=== PATIENT | male | born 1945 ===

== ENCOUNTER 2021-03-15 07:46 | Emergency (ER) | payer MEDICARE ==
[~2021-03-15] VITALS: Ht 172.7 cm; Wt 80.0 kg
--- NOTE | 2021-03-15 07:57 | PHYS DOC ---
Past Medical History Past Medical History: COPD General Adult EDM: Chief Complaint: SHORTNESS OF BREATH HPI: HPI: Patient is a 75-year-old male presenting via EMS for shortness of breath. This is an acute on chronic issue. Given respiratory status, majority of history obtained from EMS. Patient has history of COPD and typically on 5 L oxygen via nasal cannula. He awoke with increased shortness of breath which concerned , she increased his nasal cannula to 6 L without improvement prompting her to call EMS. On arrival, patient was found to be in acute respiratory failure saturating 68% on 6 L oxygen via nasal cannula. Patient was immediately placed on CPAP, and x1 DuoNeb treatment administered with improvement in patient's tachypnea and respiratory status. Nonetheless he was transferred to our facility for evaluation. On arrival, patient complaining of continued shortness of breath without any known inciting event, trauma, ingestion, exposure, sick contact or travel. Reports interventions provided of improved his symptoms. Does disclose he is on Eliquis blood thinner but unsure why. Review of Systems: Review of Systems: Fourteen body systems of review of systems have been reviewed. See HPI for pertinent positives and negative responses, other guzman all other systems are negative, non-pertinent or non-contributory Heart Score: C/O Chest Pain: No HEART Score for Chest Pain: HEART Score for Chest Pain Response (Comments) Value History Slighlty/Non-Suspicious 0 ECG Normal 0 Age > 65 2 Risk Factors >3 Risk Factors or Hx CAD 2 Troponin < Normal Limit 0 Total 4 Risk Factors: Risk Factors: DM, Current or recent (<one month) smoker, HTN, HLP, family history of CAD, obesity. Risk Scores: Score 0 - 3: 2.5% MACE over next 6 weeks - Discharge Home Score 4 - 6: 20.3% MACE over next 6 weeks - Admit for Clinical Observation Score 7 - 10: 72.7% MACE over next 6 weeks - Early Invasive Strategies Physical Exam: PE: Constitutional: Age-appropriate, in acute respiratory distress, GCS 15 HENT: Normocephalic, atraumatic, bilateral external ears normal, oropharynx dry with poor dentition globally, no oral exudates, nose normal. Eyes: PERRLA, EOMI, conjunctiva normal, no discharge. Neck: Normal range of motion, no tenderness, supple, no stridor. Cardiovascular: Heart rate tachycardic, sinus rhythm, no murmurs rubs or gallops Lungs & Thorax: Acute respiratory distress, accessory muscle use of abdomen with abdominal tractions noted, minimal air movement bilaterally with increased work of breathing Abdomen: Bowel sounds normal, soft, no tenderness, no masses, no pulsatile masses. Nonsurgical abdomen, no peritoneal signs : Incontinent of bowel which is typical for patient, Lord catheter placed and well-appearing on arrival Skin: Warm, dry, no erythema, no rash. Back: No tenderness, no CVA tenderness. Extremities: No tenderness, no cyanosis, no clubbing, ROM intact, no edema. Neurologic: Alert and oriented X 3, grossly normal motor & sensory function, no focal deficits noted. Psychologic: Anxious affect and mood Current Patient Data: Labs: Laboratory Tests Test 03/15/21 08:00 03/15/21 08:13 03/15/21 09:01 03/15/21 09:35 White Blood Count 9.3 x10^3/uL Red Blood Count 3.44 x10^6/uL Hemoglobin 9.6 g/dL Hematocrit 31.3 % Mean Corpuscular Volume 91 fL Mean Corpuscular Hemoglobin 28 pg Mean Corpuscular Hemoglobin Concent 31 g/dL Red Cell Distribution Width 20.6 % Platelet Count 325 x10^3/uL Neutrophils (%) (Auto) 83 % Lymphocytes (%) (Auto) 8 % Monocytes (%) (Auto) 6 % Eosinophils (%) (Auto) 2 % Basophils (%) (Auto) 1 % Neutrophils # (Auto) 7.7 x10^3/uL Lymphocytes # (Auto) 0.7 x10^3/uL Monocytes # (Auto) 0.6 x10^3/uL Eosinophils # (Auto) 0.1 x10^3/uL Basophils # (Auto) 0.1 x10^3/uL Platelet Estimate Adequate Polychromasia Occasional Anisocytosis Mod Prothrombin Time 17.8 SEC Prothromb Time International Ratio 1.5 Activated Partial Thromboplast Time 42 SEC Sodium Level 139 mmol/L Potassium Level 4.0 mmol/L Chloride Level 99 mmol/L Carbon Dioxide Level 34 mmol/L Anion Gap 6 Blood Urea Nitrogen 5 mg/dL Creatinine 0.5 mg/dL Estimated GFR (Cockcroft-Gault) 161.7 BUN/Creatinine Ratio 10 Glucose Level 126 mg/dL Lactic Acid Level 1.7 mmol/L Calcium Level 8.7 mg/dL Total Bilirubin 0.4 mg/dL Aspartate Amino Transf (AST/SGOT) 17 U/L Alanine Aminotransferase (ALT/SGPT) 21 U/L Alkaline Phosphatase 79 U/L Troponin I High Sensitivity 33 ng/L HM-Bjr-F-Type Natriuretic Peptide 660 pg/mL Total Protein 6.3 g/dL Albumin 2.5 g/dL Albumin/Globulin Ratio 0.7 SARS-CoV-2 Antigen (Rapid) Negative O2 Saturation 96 % Arterial Blood pH 7.42 Arterial Blood pCO2 at Patient Temp 49 mmHg Arterial Blood pO2 at Patient Temp 79 mmHg Arterial Blood HCO3 31 mmol/L Arterial Blood Base Excess 6 mmol/L FiO2 40 Urine Collection Type Unknown Urine Color Yellow Urine Clarity Clear Urine pH 6.0 Urine Specific [place] >=1.030 Urine Protein 30 mg/dL Urine Glucose (UA) Negative mg/dL Urine Ketones (Stick) Trace mg/dL Urine Blood Large Urine Nitrite Negative Urine Bilirubin Negative Urine Urobilinogen Dipstick 0.2 mg/dL Urine Leukocyte Esterase Negative Urine RBC >40 /HPF Urine WBC Occ /HPF Urine Squamous Epithelial Cells Occ /LPF Urine Bacteria 0 /HPF Urine Mucus Marked /LPF Current Medications Medications (Trade) Dose Ordered Sig/Sp Route PRN Reason Start Time Stop Time Status Last Admin Dose Admin Methylprednisolone Sodium Succinate (SOLU-Medrol 125MG VIAL) 125 mg 1X ONCE IV 03/15/21 08:00 03/15/21 08:26 DC 03/15/21 08:00 Albuterol/ Ipratropium (Duoneb) 3 ml 1X ONCE NEB 03/15/21 08:00 03/15/21 08:26 DC 03/15/21 08:30 Azithromycin 250 ml @ 250 mls/hr 1X ONCE IV 03/15/21 09:00 03/15/21 09:59 DC 03/15/21 09:40 Iohexol (Omnipaque 350 Mg/ml) 100 ml 1X ONCE IV 03/15/21 09:00 03/15/21 09:04 DC 03/15/21 09:21 Info (CONTRAST GIVEN -- Rx MONITORING) 1 each PRN DAILY PRN MC SEE COMMENTS 03/15/21 09:15 03/17/21 09:14 Vital Signs: Vital Signs Date Time Temp Pulse Resp B/P (MAP) Pulse Ox O2 Delivery O2 Flow Rate FiO2 03/15/21 08:00 99.5 106 30 163/95 (117) 99 BiPAP/CPAP 99.5 Vital Signs Date Time Temp Pulse Resp B/P (MAP) Pulse Ox O2 Delivery O2 Flow Rate FiO2 03/15/21 08:30 100 BiPAP/CPAP 03/15/21 08:00 99.5 106 30 163/95 (117) 99.5 EKG: EKG: EKG ordered and interpreted by myself at 0847 hrs. is sinus rhythm at 79 bpm, unremarkable intervals, no axis deviation, no acute ischemic findings, no STEMI Radiology/Procedures: Radiology/Procedures: EXAM: XR CHEST 1V 03/15/2021 8:20 AM CLINICAL INDICATION: Shortness of breath. COMPARISON: None TECHNIQUE: AP upright view of the chest FINDINGS: The heart is normal in size. Lungs are hyperexpanded. There is calcified granuloma in the left lung base. Mild left pleural thickening versus small left pleural effusion. No consolidation. No pneumothorax. No acute osseous abnormality. IMPRESSION: Small left pleural effusion versus pleural thickening. Electronically signed by: Rhonda Vences MD (03/15/2021 8:41 AM) [id number] ////////////////////////////////////////// Study: CT CHEST WITH CONTRAST - PULMONARY ANGIOGRAM History: Shortness of breath Comparison: Chest radiograph 03/15/2021 Technique: Helical CT of the chest performed after the administration of 100 mL Omnipaque 350 intravenous contrast and timed for angiographic evaluation of the pulmonary arteries per PE protocol. Coronal and sagittal 3D MIP reformations were obtained. One or more of the following individualized dose reduction techniques were utilized for this examination: 1. Automated exposure control 2. Adjustment of the mA and/or kV according to patient size 3. Use of iterative reconstruction technique. Findings: Pulmonary Arteries: Contrast bolus is adequate. There is no acute pulmonary embolism. Heart/Systemic Vasculature: Heart is normal in size. Small pericardial effusion. There are coronary artery calcifications. Thoracic aorta is normal in caliber. No aortic dissection. Mediastinum: No lymphadenopathy. Lungs: There is mild centrilobular emphysema. There are small partially loculated pleural effusions in the posterior lung bases. Mild adjacent opacities in the lung bases including a 1.5 cm nodular opacity in the posterior right lower lobe. This is most likely scarring or round atelectasis. There is a calcified granuloma in the left lower lobe. Mild dependent opacities in the left upper lobe. There is a 4 mm subpleural nodule in the lateral right apex. Diffuse airway wall thickening. Mild mucous plugging in the right lower lobe. Neck/Axilla/Body Wall: No axillary lymphadenopathy. Upper Abdomen: Unremarkable. Bones: Multiple old left rib fractures. 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 IMPRESSION: 1. No acute pulmonary embolism. 2. Small bilateral partially loculated pleural effusions. Mild adjacent opacities in the lower lobes including a 1.5 cm nodular opacity in the right lower lobe may be scarring, atelectasis, or pneumonia. Recommend three-month follow-up CT of the chest to ensure resolution/stability. 3. 4 mm subpleural nodule in the lateral right apex. This could also be reevaluated in 3 months. 4. Centrilobular emphysema. Electronically signed by: Rhonda Vences MD (03/15/2021 9:34 AM) [id number] Course & Med Decision Making: Course & Med Decision Making Airway patent, breathing labored in acute respiratory distress, IV access and vitals obtained concerning for hypoxia on typical 5 L oxygen via nasal cannula, tachycardia and tachypnea History limited, physical exam and comprehensive ER work-up pursued CPAP continued on arrival with continued improvement in respiratory status. Initially speaking in few word sentences but after repeat examinations was able to provide more clear history Admits he is vaccinated against the flu but has not received his COVID-19 vaccines yet. 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 Has recent hospitalizations at [facility] 2 months ago and was discharged yesterday from 2-week stay at [facility] He admits to having supplemental oxygen at home which she is dependent on 5 L via nasal cannula, no other pulmonary hygiene accessories such as spirometry, CPAP/BiPAP etc. Despite improvement in patient's respiratory status, he is unsafe for discharge home. He is still dependent on respiratory services for which he does not have at home. He is not safe for discharge and so, hospitalist was contacted and patient accepted for continued inpatient medical management Verito Disclaimer: Verito Disclaimer: This electronic medical record was generated, in whole or in part, using a voice recognition dictation system. Departure Departure Impression: Primary Impression: Acute exacerbation of chronic obstructive pulmonary disease (COPD) Additional Impression: Acute on chronic respiratory failure Disposition: ADMITTED INPATIENT Admitting Physician: EYAD (DR DESAI) Condition: STABLE YANETH CARTWRIGHT DO Mar 15, 2021 07:57
[2021-03-15] MEDS ORDERED: methylPREDNISolone SOD SUCC PF 125 MG/2 ML VIAL. IV ONE (08:00)
[2021-03-15] MEDS ORDERED: IPRATRPIUM/ALBUTEROL 0.5/2.5MG 3 ML NEBU. NEB ONE (08:00)
[2021-03-15 08:18] LABS: BASO # 0.1 x10^3/uL (0.0-0.2); BASO % 1 % (0-3); EOS # 0.1 x10^3/uL (0.0-0.7); EOS % 2 % (0-3); HEMATOCRIT 31.3 % (39.0-53.0); HEMOGLOBIN 9.6 g/dL (13.0-17.5); LYMPH # 0.7 x10^3/uL (1.0-4.8); LYMPH % 8 % (24-48); MEAN CORPUSCULAR HEMOGLOBIN 28 pg (25-35); MEAN CORPUSCULAR HGB CONC 31 g/dL (31-37); MEAN CORPUSCULAR VOLUME 91 fL (79-100); MONO # 0.6 x10^3/uL (0.0-1.1); MONO % 6 % (0-9); NEUT # 7.7 x10^3/uL (1.8-7.7); NEUT % 83 % (31-73); PLATELET COUNT 325 x10^3/uL (140-400); RED BLOOD COUNT 3.44 x10^6/uL (4.30-5.70); RED CELL DISTRIBUTION WIDTH 20.6 % (11.5-14.5); WHITE BLOOD COUNT 9.3 x10^3/uL (4.0-11.0)
[2021-03-15 08:33] LABS: CALCIUM 8.7 mg/dL (8.5-10.1); CREATININE 0.5 mg/dL (0.7-1.3); GFR 161.7
[2021-03-15 08:36] LABS: PROTHROMBIN TIME PATIENT 17.8 SEC (11.7-14.0)
[2021-03-15 08:39] LABS: ALBUMIN 2.5 g/dL (3.4-5.0); ALBUMIN/GLOBULIN RATIO 0.7 (1.0-1.7); TOTAL BILIRUBIN 0.4 mg/dL (0.2-1.0); TOTAL PROTEIN 6.3 g/dL (6.4-8.2)
--- NOTE | 2021-03-15 08:43 | RAD ---
EXAM: XR CHEST 1V 03/15/2021 8:20 AM CLINICAL INDICATION: Shortness of breath. COMPARISON: None TECHNIQUE: AP upright view of the chest FINDINGS: The heart is normal in size. Lungs are hyperexpanded. There is calcified granuloma in the left lung base. Mild left pleural thickening versus small left pleural effusion. No consolidation. No pneumothorax. No acute osseous abnormality. IMPRESSION: Small left pleural effusion versus pleural thickening. Electronically signed by: Rhonda Vences MD (03/15/2021 8:41 AM) [id number]
[2021-03-15] MEDS ORDERED: AZITHRMYCN 500MG IVPB FOR OMNI 250 ML IV ONE (09:00)
[2021-03-15] MEDS ORDERED: IOHEXOL 350 MG/ML 100 ML VIAL. IV ONE (09:00)
[2021-03-15] MEDS ORDERED: CONTRAST GIVEN. MC PRN (09:15)
[2021-03-15 09:24] LABS: BASE EXCESS ABG 6 mmol/L (-3-3); HCO3 ABG 31 mmol/L (21-28); PCO2 ABG 49 mmHg (35-46); PO2 ABG 79 mmHg (65-108); SAT O2 ABG 96 % (92-99)
[2021-03-15 09:29] LABS: FIO2 ABG 40
--- NOTE | 2021-03-15 09:36 | RAD ---
Study: CT CHEST WITH CONTRAST - PULMONARY ANGIOGRAM History: Shortness of breath Comparison: Chest radiograph 03/15/2021 Technique: Helical CT of the chest performed after the administration of 100 mL Omnipaque 350 intrav enous contrast and timed for angiographic evaluation of the pulmonary arteries per PE protocol. Coron al and sagittal 3D MIP reformations were obtained. One or more of the following individualized dose reduction techniques were utilized for this examinat ion: 1. Automated exposure control 2. Adjustment of the mA and/or kV according to patient size 3. Use of iterative reconstruction technique. Findings: Pulmonary Arteries: Contrast bolus is adequate. There is no acute pulmonary embolism. Heart/Systemic Vasculature: Heart is normal in size. Small pericardial effusion. There are coronary a rtery calcifications. Thoracic aorta is normal in caliber. No aortic dissection. Mediastinum: No lymphadenopathy. Lungs: There is mild centrilobular emphysema. There are small partially loculated pleural effusions i n the posterior lung bases. Mild adjacent opacities in the lung bases including a 1.5 cm nodular opac ity in the posterior right lower lobe. This is most likely scarring or round atelectasis. There is a calcified granuloma in the left lower lobe. Mild dependent opacities in the left upper lobe. There is a 4 mm subpleural nodule in the lateral right apex. Diffuse airway wall thickening. Mild mucous plug ging in the right lower lobe. Neck/Axilla/Body Wall: No axillary lymphadenopathy. Upper Abdomen: Unremarkable. Bones: Multiple old left rib fractures. 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 IMPRESSION: 1. No acute pulmonary embolism. 2. Small bilateral partially loculated pleural effusions. Mild adjacent opacities in the lower lobes including a 1.5 cm nodular opacity in the right lower lobe may be scarring, atelectasis, or pneumoni a. Recommend three-month follow-up CT of the chest to ensure resolution/stability. 3. 4 mm subpleural nodule in the lateral right apex. This could also be reevaluated in 3 months. 4. Centrilobular emphysema. Electronically signed by: Rhonda Vences MD (03/15/2021 9:34 AM) [id number]
[2021-03-15 09:44] LABS: BILIRUBIN,URINE NEGATIVE (NEG); CLARITY,URINE CLEAR; COLOR,URINE YELLOW; NITRITE,URINE NEGATIVE (NEG); PROTEIN,URINE 30 mg/dL (NEG-TRACE); UROBILINOGEN,URINE 0.2 mg/dL (0.2 mg/dL)
[2021-03-15 09:57] LABS: RBC,URINE >40 /HPF (0-2)
[2021-03-15 09:58] LABS: BACTERIA,URINE 0 /HPF (0-FEW); WBC,URINE OCC /HPF (0-4)
[2021-03-15 09:59] LABS: PLT ESTIMATE ADEQUATE (ADEQUATE)
[2021-03-15 10:00] LABS: ANISOCYTOSIS MOD
[2021-03-15 10:01] LABS: POLYCHROMASIA OCCASIONAL
[2021-03-15] MEDS ORDERED: ACETAMINOPHEN 325 MG TABLET. PO PRN (10:15)
[2021-03-15] MEDS ORDERED: NITROGLYCERIN SUBLINGUAL 0.4 MG BOTTLE OF 25. SL PRN (10:15)
[2021-03-15] MEDS ORDERED: ONDANSETRON PF 4 MG/2 ML VIAL. IVP PRN (10:15)
--- NOTE | 2021-03-15 11:53 | HP ---
DATE OF SERVICE: 03/15/2021 ADMIT DATE: 03/15/2021 CHIEF COMPLAINT: Shortness of breath. HISTORY OF PRESENT ILLNESS: The patient is a pleasant 75-year-old male who presented via EMS to the ER. He has got known COPD. Once again, he is in respiratory failure. We placed him on a CPAP. I discussed the case with ER physician. We are going to admit the patient. PAST MEDICAL HISTORY: COPD, previous tobacco abuse. ALLERGIES: None. FAMILY HISTORY: Diabetes. SOCIAL HISTORY: I think he quit smoking. No drink or drugs. MEDICATIONS: Reviewed, please refer to the [facility] REVIEW OF SYSTEMS: Unable to obtain. He is on CPAP, very sleepy. PHYSICAL EXAMINATION: VITALS: Within normal limits and are stable. GENERAL: He is on CPAP, very sleepy. HEENT: Normal cephalic atraumatic, external auditory canals are patent EYES: Extraocular muscles are intact, pupils are equally round and reactive to light and accommodation MUSCULOSKELETAL: Well developed, well nourished, good range of motion ENDOCRINE: No thyromegaly was palpated LYMPHATICS: No cervical chain or axillary nodes were noted HEMATOPOIETIC: No bruising NECK: Supple, no JVD, no thyromegaly was noted. LUNGS: He has bibasilar crackles. HEART: RRR, S1, S2 present. Peripheral pulses intact, no obvious murmurs were noted. ABDOMEN: Soft, nontender. Positive bowel sounds no organomegaly, normal bowel sounds. EXTREMITIES: Without any cyanosis, clubbing, or edema. Pedal pulses intact, Homans sign is negative. NEUROLOGIC: He is on CPAP, very sleepy. PSYCHIATRIC: He is on CPAP, very sleepy. SKIN: No ulcerations or rashes, good skin turgor, no jaundice. VASCULAR: Good capillary refill, neurovascular bundle appears to be intact. LABORATORY DATA: Hemoglobin is 9.6, white count 9.3. Electrolytes are basically normal. INR is 1.5. Urinalysis negative. COVID testing negative. DIAGNOSTIC DATA: Chest x-ray shows a small left pleural effusion with some thickening. CT angiography shows no pulmonary emboli, but does show some emphysema and a 4 mm subpleural nodule in the right apex, some small pleural effusions. ASSESSMENT AND PLAN: Respiratory failure with chronic obstructive pulmonary disease exacerbation. The patient has been admitted. We will consult Dr. Wright. IV steroids, breathing treatments, oxygen, home meds, DVT prophylaxis. Full code. Empiric IV antibiotics. STEVIE/MERCY DR: Ronel TID: [id number]
[2021-03-15 12:02] VITALS: BP 148/70
--- NOTE | 2021-03-16 04:48 | EKG ---
[facility] [address] [place] [address] Test Date: 2021-03-15 Test Time: 08:41:13 Pat Name: PENG DICKENS Department: Room: ED HOLD 20 Gender: M [employer] Operator: : 1945 Requested By: YANETH CARTWRIGHT Order Number: [id number] Reading MD: Vlad Emmanuel Measurements Intervals [place] Rate: 79 P: -90 CA: 120 QRS: 52 QRSD: 100 T: 49 QT: 370 QTc: 430 Interpretive Statements SINUS RHYTHM Electronically Signed On 04-03-2021 8:26:44 [employer]IOR SALES [employer] by Vlad Emmanuel
[2021-03-16] MEDS ORDERED: methylPREDNISolone SOD SUCC PF 40 MG/ML VIAL. IV SCH (06:15)
[2021-03-16] MEDS ORDERED: ENOXAPARIN 40 MG/0.4 ML SYRINGE. SQ SCH (09:00)
[2021-03-16] MEDS ORDERED: FAMOTIDINE 20 MG/2 ML VIAL IVP SCH (09:00)
[2021-03-30] MEDS ORDERED: APIX5TAB PO (23:39)
[2021-03-30] MEDS ORDERED: TRAN4TAB23 PO (23:39)
[2021-03-30] MEDS ORDERED: PRED20TA PO (23:39)
[2021-03-30] MEDS ORDERED: GABA300C18 PO (23:39)
[2021-03-30] MEDS ORDERED: LORA2ORA7 PO (23:39)
[2021-03-30] MEDS ORDERED: BUDE10.26 IH (23:39)
[2021-03-30] MEDS ORDERED: MOR20SL SL (23:39)
[2021-03-30] MEDS ORDERED: TRAZ-123 PO (23:39)
[2021-04-01] MEDS ORDERED: DOXY100T PO (14:12)
[2021-04-01] MEDS ORDERED: CEFD300C PO (14:13)
== END 2021-03-15 22:30 | disposition home or self-care (01) ==
LOC: ER 07:46 → UNDOADMIN 10:12 → ED HOLD 10:12
DX: J44.1 Chronic obstructive pulmonary disease with (acute) exacerbation (principal); J96.20 Acute and chronic respiratory failure, unspecified whether with hypoxia or hypercapnia; Z20.822 Contact with and (suspected) exposure to COVID-19
CPT/HCPCS: 36415; 36600; 71045; 71275; 80053; 81001; 82805; 83605; 83880; 84484; 85025; 85610; 85730; 87040; 87426; 93005; 94640; 94660; 96365; 96375; 99285; J0456; J2930; Q9967; U0003; U0005; 94760